=== PATIENT | female | born 1960 | race Two or more races ===

== ENCOUNTER 2019-11-21 11:56 | Day surgery (SDC) | payer OTHER ==
[2019-11-20 14:04] VITALS: BMI 29.7
[2019-11-21] MEDS ORDERED: PROPOFOL 20 ML ONE ×3 (15:47)
[2019-11-21] MEDS ORDERED: MIDAZOLAM HCL 2 MG/2 ML SINGLE DOSE VIAL ONE (15:47)
[2019-11-21] MEDS ORDERED: LIDOCAINE 1%-EPI 1:100,000 30 ML MDV IJ ONE (16:01)
[2019-11-21] MEDS ORDERED: ceFAZolin SODIUM 1 GM VIAL IVPB ONE (16:20)
[2019-11-21] MEDS ORDERED: BUPIVACAINE HCL/PF 0.5% (5 MG/ML) 30 ML VIAL IJ ONE (16:36)
[2019-11-21] MEDS ORDERED: LIDOCAINE 1%/EPI 1:100000 (20 ML MULTI DOSE VIAL) IJ ONE (16:36)
[2019-11-21] MEDS ORDERED: LACTATED RINGERS SOLUTION 1,000 ML IV SCH (17:15)
[2019-11-21 19:40] VITALS: TEMP 98.1
[2019-11-21 19:51] VITALS: BP 115/62; PULSE 64
--- NOTE | 2019-11-21 20:35 | OP ---
DATE OF OPERATION: 11/21/2019 SURGEON: Kamar Cleveland DPM PREOPERATIVE DIAGNOSIS: Hyperostosis, osteophyte at the left 1st metatarsocuneiform joint. POSTOPERATIVE DIAGNOSIS: Hyperostosis, osteophyte at the left 1st metatarsocuneiform joint. PROCEDURE: Resection of left 1st metatarsophalangeal joint osteophytosis with of the bone. Under fractional anesthesia and a surgical scrub with Betadine scrub and solution x2, the patient was draped using sterile technique. After 3 minutes of left limb elevation, a left ankle tourniquet was inflated to 250 mmHg pressure for 60 minutes. Inspection of the left foot showed a prominence at the left 1st metatarsophalangeal joint dorsally with no cutaneous abnormalities. Using a number 15 surgical blade, a linear longitudinal incision was made on the dorsal medial aspect of the 1st metatarsocuneiform joint, and the incision was deepened through superficial fascia and retracted, exposing the deep fascia. Using a similar number 15 surgical blade, a linear longitudinal incision was made at the 1st metatarsocuneiform joint. The joint capsule and attached ligaments were sharply dissected from the joint, exposing the dorsal aspect of the medial cuneiform and the proximal aspect and dorsal aspect of the 1st metatarsal base. The bony prominence was identified and it was resected using a sagittal saw. The bone was rasped smooth and round as to not present a sharp surface to the overlying skin. The wound was copiously irrigated with sterile saline and then joint capsule and ligament were reapproximated and closed with 3-0 Vicryl. The ankle tourniquet was deflated and vascular perfusion immediately returned to all 5 digits, but it should be noted that there was no excessive bleeding from the wound, so skin was then reapproximated and closed with 4-0 Vicryl subcuticular sutures and Steri-Strips. The patient tolerated the surgical procedure well and left the operating room stable, alert, awake, and in no pain. ATA SNIDER/[id number]
--- NOTE | 2019-11-25 16:47 | PATH ---
Surgical Pathology Report Patient Name: OLINDA BUCHANAN [facility]. Rec. #: [id number] /Age/Gender: 1960 (Age: 59) / F Account: [id number] Location: [facility] SURGICAL Taken: 11/16/2019 Received: 11/22/2019 Reported: 11/25/2019 Physicians: Kamar Cleveland M.D. Specimen(s) Received BONE FROM FIRST METATARSAL CUNEIFORM Clinical History Left foot bunionectomy Final Diagnosis BONE, FIRST METATARSAL, CUNEIFORM, LEFT, BUNIONECTOMY: BONE WITH FATTY MARROW AND DENSE CONNECTIVE TISSUE. Electronically Signed Olinda Brewer M.D. Gross Description Received in formalin labeled "bone from first metatarsal," is a 1.4 x 1.2 x 0.2 cm lee, irregular portion of bone. The specimen is serially sectioned and entirely submitted in one cassette, following decalcification. 11/22/2019 saudi11/22/2019
== END 2019-11-21 19:30 | disposition home or self-care (01) ==
LOC: JASU-SURG 11:56
PROVIDERS: ATTEND Podiatrist Foot Surgery
PROC: 0QSP04Z Reposition Left Metatarsal with Internal Fixation Device, Open Approach (ICD-10-PCS; principal; 2019-11-21 14:00)
DX: M25.775 Osteophyte, left foot (principal)
CPT/HCPCS: 73630-TC-LT; 94760

== ENCOUNTER → 2023-07-11 | Day surgery (SDC) | payer OTHER | END | disposition home or self-care (01) | LOC: FRADUS-SUR 10:50 | PROVIDERS: ATTEND Internal Medicine | PROC: 0HBT3ZX Excision of Right Breast, Percutaneous Approach, Diagnostic (ICD-10-PCS; principal; 2023-07-11) | DX: N63.13 Unspecified lump in the right breast, lower outer quadrant (principal); D24.1 Benign neoplasm of right breast; N60.31 Fibrosclerosis of right breast | CPT/HCPCS: 19083; 77065-TC; 87899; 88305-TC; A4648 ==